=== PATIENT | male | born 1980 | race Caucasian/White ===

== ENCOUNTER 2017-11-18 20:32 | Emergency (ER) | payer SELFPAY ==
[~2017-11-18] VITALS: Ht 167.6 cm; Wt 67.8 kg
[2017-11-18 20:40] VITALS: TEMP 37.1; Ht 167.6 cm; Wt 67.8 kg
[2017-11-18] MEDS ORDERED: SODIUM CHLORIDE 0.9% 500ML 500 ML IV STA (20:45)
[2017-11-18] MEDS ORDERED: GI COCKTAIL PO STA (20:45)
[2017-11-18] MEDS ORDERED: KETOROLAC TROMETHAMINE 30 MG/ML VIAL IV STA (20:45)
[2017-11-18 20:53] VITALS: O2SAT 97
[2017-11-18] MEDS ORDERED: ALUMINUM/MAGNESIUM SUSP 30 ML UDC ONE (20:57)
[2017-11-18] MEDS ORDERED: LIDOCAINE HCL 2% VISC SOLN 20 ML UDC ONE (20:57)
--- NOTE | 2017-11-18 21:05 | DIAGNOSTIC IMAGING REPORT ---
CHEST ONE VIEW PORTABLE CLINICAL HISTORY: 37 years-old Male presenting with Chest Pain. TECHNIQUE: Portable upright AP view of the chest was obtained. COMPARISON: None. FINDINGS: Cardiomediastinal silhouette normal. Lungs and pleural spaces clear. Osseous structures normal. Upper abdomen normal. IMPRESSION: 1. No acute cardiopulmonary disease. Electronically signed by: Emil Gonzalez M.D. 11/18/2017 9:03 PM Dictated Date/Time: 11/18/2017 9:03 PM
[2017-11-18] MEDS ORDERED: ASPI325T39 PO (21:17)
[2017-11-18 21:31] LABS: BASO % 0.4 %; BASO ABS # 0.03 K/uL (0-0.2); EOS % 0.6 %; EOS ABS # 0.04 K/uL (0-0.5); HEMATOCRIT 41.3 % (42-52); HEMOGLOBIN 15.2 g/dL (14.0-18.0); IG# 0.02 K/uL (0.00-0.02); LYMPH % 22.6 %; LYMPH ABS # 1.51 K/uL (1.2-3.4); MEAN CELL VOLUME 94.5 fL (80-100); MEAN CORPUSCULAR HEMOGLOBIN 34.8 pg (25-34); MEAN CORPUSCULAR HGB CONC 36.8 g/dl (32-36); MEAN PLATELET VOLUME 9.5 fL (7.4-10.4); MONO % 9.6 %; MONO ABS # 0.64 K/uL (0.11-0.59); NEUT % 66.5 %; NEUT ABS # 4.43 K/uL (1.4-6.5); PLATELET COUNT 274 K/uL (130-400); RED CELL DISTRIBUTION WIDTH CV 12.4 % (11.5-14.5); RED CELL DISTRIBUTION WIDTH SD 42.5 fL (36.4-46.3); WHITE BLOOD COUNT 6.67 K/uL (4.8-10.8)
[2017-11-18 21:47] LABS: BLOOD UREA NITROGEN 16 mg/dl (7-18); CALCIUM 8.5 mg/dl (8.5-10.1); CARBON DIOXIDE 23 mmol/L (21-32); CREATININE 0.71 mg/dl (0.60-1.40); GLUCOSE 84 mg/dl (70-99); POTASSIUM 3.6 mmol/L (3.5-5.1); SODIUM 136 mmol/L (136-145)
[2017-11-18 22:03] LABS: CKMB 6.8 ng/ml (0.5-3.6)
[2017-11-18] MEDS ORDERED: SODIUM CHLORIDE 0.9% 1000ML 1,000 ML IV STA (22:04)
--- NOTE | 2017-11-18 22:15 | EMERGENCY ROOM VISIT NOTE ---
History Report prepared by Angel: Katerin Mckinney Under the Supervision of: Dr. Rashad Alaniz D.O. First contact with patient: 20:35 Chief Complaint: CHEST PAIN Stated Complaint: CHEST PAIN History of Present Illness The patient is a 37 year old male who presents to the Emergency Room with complaints of persistent chest pain starting 1 hour ago. 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 He initially went to the [facility] complaining of the chest pain after searching the internet for the nearest facility. He was brought to the ED by EMS. The pain is in the left side of his chest and radiates down his left arm. He notes that the pain is worse on palpitation. He describes it as squeezing. He has had this pain multiple times in the past and has been told that he has a lot of stomach acid. The pain does not worsen with twisting or turning. He has had a cough which worsens the pain. He is not coughing up blood, but he noticed some blood in his saliva today. He denies any abdominal pain or leg pain. He denies any thoughts of harming himself or anyone else. He does currently smoke. He admits to drinking alcohol daily. He had around 6 beers today. Patient denies diabetes, hypertension, hyperlipidemia, CAD, history of sudden at a young age. Patient denies swelling of calves, recent trips, history of immobilization or recent surgery, prior history of DVT, hemoptysis, history of malignancy. Source of History: patient Onset: 1 hour ago Position: chest (left) Quality: other (squeezing) Timing: other (persistent) Modifying Factors (Worsening): other (cough) Associated Symptoms: + cough, No abdominal pain Note: Pt denies swelling of calves. Review of Systems See HPI for pertinent positives & negatives. A total of 10 systems reviewed and were otherwise negative. Past Medical & Surgical No history of diabetes, hypertension, CAD. Family History No family history of sudden at a young age. Social History Smoking Status: Current Every Day Smoker Alcohol Use: heavy Current/Historical Medications Scheduled Aspirin (Aspirin Ec), 650 MG PO PRN Allergies Coded Allergies: No Known Allergies (Unverified , 11/18/17) Physical Exam Vital Signs Date Time Temp Pulse Resp B/P (MAP) Pulse Ox O2 Delivery O2 Flow Rate FiO2 11/18/17 21:58 75 18 129/70 98 Room Air 11/18/17 20:53 97 Room Air 11/18/17 20:45 97 Room Air 11/18/17 20:43 87 11/18/17 20:40 37.1 79 20 129/78 97 Room Air Physical Exam GENERAL: Sitting up in bed, smells of alcohol, no acute distress, non-toxic EYE EXAM: conjunctiva injected. OROPHARYNX: no exudate, no erythema, lips, buccal mucosa, and tongue normal and mucous membranes are moist NECK: supple, no nuchal rigidity, no adenopathy, non-tender LUNGS: Clear to auscultation. Normal chest wall mechanics HEART: no murmurs, S1 normal and S2 normal CHEST: reproducible anterior chest wall pain just inferior to the left humeral head which when palpitated radiates to left arm and left neck ABDOMEN: abdomen soft, non-tender, normo-active bowel sounds, no masses, no rebound or guarding. BACK: Back is symmetrical on inspection and there is no deformity, no midline tenderness, no CVA tenderness. SKIN: no rashes and no bruising UPPER EXTREMITIES: upper extremities are grossly normal. Radial pulses equal bilaterally. LOWER EXTREMITIES: No pitting edema. Calves equal bilaterally. NEURO EXAM: Normal sensorium, cranial nerves II-XII grossly intact, normal speech, no gross weakness of arms, no gross weakness of legs. Medical Decision & Procedures ER Provider Diagnostic Interpretation: Radiology results as stated below per my review and the radiologist's interpretation: CHEST ONE VIEW PORTABLE CLINICAL HISTORY: 37 years-old Male presenting with Chest Pain. TECHNIQUE: Portable upright AP view of the chest was obtained. COMPARISON: None. FINDINGS: Cardiomediastinal silhouette normal. Lungs and pleural spaces clear. Osseous structures normal. Upper abdomen normal. IMPRESSION: 1. No acute cardiopulmonary disease. Electronically signed by: Emil Gonzalez M.D. 11/18/2017 9:03 PM Dictated Date/Time: 11/18/2017 9:03 PM Laboratory Results 11/18/17 21:15 Red Blood Count 4.37, Mean Corpuscular Volume 94.5, Mean Corpuscular Hemoglobin 34.8, Mean Corpuscular Hemoglobin Concent 36.8, Mean Platelet Volume 9.5, Neutrophils (%) (Auto) 66.5, Lymphocytes (%) (Auto) 22.6, Monocytes (%) (Auto) 9.6, Eosinophils (%) (Auto) 0.6, Basophils (%) (Auto) 0.4, Neutrophils # (Auto) 4.43, Lymphocytes # (Auto) 1.51, Monocytes # (Auto) 0.64, Eosinophils # (Auto) 0.04, Basophils # (Auto) 0.03 11/18/17 21:15 Test 11/18/17 21:15 White Blood Count 6.67 K/uL (4.8-10.8) Red Blood Count 4.37 M/uL (4.7-6.1) Hemoglobin 15.2 g/dL (14.0-18.0) Hematocrit 41.3 % (42-52) Mean Corpuscular Volume 94.5 fL (80-100) Mean Corpuscular Hemoglobin 34.8 pg (25-34) Mean Corpuscular Hemoglobin Concent 36.8 g/dl (32-36) Platelet Count 274 K/uL (130-400) Mean Platelet Volume 9.5 fL (7.4-10.4) Neutrophils (%) (Auto) 66.5 % Lymphocytes (%) (Auto) 22.6 % Monocytes (%) (Auto) 9.6 % Eosinophils (%) (Auto) 0.6 % Basophils (%) (Auto) 0.4 % Neutrophils # (Auto) 4.43 K/uL (1.4-6.5) Lymphocytes # (Auto) 1.51 K/uL (1.2-3.4) Monocytes # (Auto) 0.64 K/uL (0.11-0.59) Eosinophils # (Auto) 0.04 K/uL (0-0.5) Basophils # (Auto) 0.03 K/uL (0-0.2) RDW Standard Deviation 42.5 fL (36.4-46.3) RDW Coefficient of Variation 12.4 % (11.5-14.5) Immature Granulocyte % (Auto) 0.3 % Immature Granulocyte # (Auto) 0.02 K/uL (0.00-0.02) D-Dimer < 190 ug/L FEU (0-500) Anion Gap 9.0 mmol/L (3-11) Est Creatinine Clear Calc Drug Dose 127.2 ml/min Estimated GFR () 137.9 Estimated GFR (Non- 119.0 BUN/Creatinine Ratio 22.4 (10-20) Calcium Level 8.5 mg/dl (8.5-10.1) Total Creatine Kinase 1110 U/L (39-308) Creatine Kinase MB 6.8 ng/ml (0.5-3.6) Creatine Kinase MB Ratio 0.6 (0-3.0) Troponin I < 0.015 ng/ml (0-0.045) Laboratory results per my review. Medications Administered Medications (Trade) Dose Ordered Sig/Judd Route Start Time Stop Time Status Last Admin Dose Admin Sodium Chloride 500 ml @ 999 mls/hr Q31M STAT IV 11/18/17 20:45 11/18/17 21:15 DC 11/18/17 21:03 999 MLS/HR Ketorolac Tromethamine (Toradol Inj) 30 mg NOW STAT IV 11/18/17 20:45 11/18/17 20:46 DC 11/18/17 21:03 30 MG Lidocaine HCl (Viscous Lidocaine 2% Soln) 20 ml STK-MED ONCE .ROUTE 11/18/17 20:57 11/18/17 20:58 DC 11/18/17 21:03 20 ML Al Hydroxide/Mg Hydroxide (Maalox Susp) 30 ml STK-MED ONCE .ROUTE 11/18/17 20:57 11/18/17 20:58 DC 11/18/17 21:03 30 ML Sodium Chloride 1,000 ml @ 999 mls/hr Q1H1M STAT IV 11/18/17 22:04 11/18/17 23:04 DC 11/18/17 22:14 999 MLS/HR ECG Per My Interpretation Indication: chest pain Rate (beats per minute): 74 Rhythm: sinus rhythm Findings: no ectopy, other (normal axis, normal intervals) ED Course ED COURSE: Vital signs were reviewed and showed normal vitals. The patients medical record was reviewed The above diagnostic studies were performed and reviewed. ED treatments and interventions as stated above. 2036: The patient was evaluated in room C10. A complete history and physical examination was performed. 2044: Toradol Inj 30 mg IV, NSS 500 ml @ 999 mls/hr IV. 2056: Maalox Susp 30 ml PO, Lidocaine HCl 20 ml PO. 2203: NSS 1000 ml @ 999 mls/hr IV. 2245: I reevaluated the patient. He is doing fine and has no complaints. His friend is out waiting in his car. 2315: Pt w/o pain resting comfortably. Pt was signed out to Dr. Puri awaiting repeat troponin. If neg he will go home as discussed with the Patient. Medical Decision Differential diagnoses includes but is not limited to acute coronary syndrome, myocardial infarction, pericarditis, pulmonary embolus, aortic dissection, pneumonia, pneumothorax, musculoskeletal, shingles, esophageal. Patient is a 37-year-old male with no significant past medical history presents to the ER for left-sided chest pain. He has a clear smell of alcohol on his breath. He notes that they initially presented to the [facility] as they googled nearest medical facility and presented to the [facility] via GPS. He has no suicidal or homicidal ideations. Pain is located on the left upper chest wall which is reproducible on exam. It does radiate down the left arm and up to the left side neck on palpation. His pain was completely relieved with IV Toradol and a GI cocktail. This can still be reproduced on palpitation although it has completely resolved. EKG unremarkable. Troponin negative. D-dimer negative. Chest x-ray was unremarkable. Heart score places him into a low risk category. Will repeat troponin and if negative discharged to follow-up as an outpatient. Medication Reconcilliation Current Medication List: was personally reviewed by me Blood Pressure Screening Patient's blood pressure: Normal blood pressure Blood pressure disposition: Did not require urgent referral Impression Primary Impression: Chest pain, musculoskeletal Scribe Attestation The scribe's documentation has been prepared under my direction and personally reviewed by me in its entirety. I confirm that the note above accurately reflects all work, treatment, procedures, and medical decision making performed by me. Departure Information Dispostion Home / Self-Care Referrals No Doctor, Assigned (PCP) Forms Call Back Authorization, HOME CARE DOCUMENTATION FORM, IMPORTANT VISIT INFORMATION Patient Instructions Alcohol Abuse - [facility], ED Chest Pain Costochondritis, My [facility] Additional Instructions Please follow up with your primary care doctor with in the next 24 hours. Any worsening of your symptoms, please return to the ED immediately. This includes any fevers greater than 100.4, worsening pain, chest pain, shortness breath, persistent nausea, vomiting, unable to eat or drink, or any other concerning signs or symptoms from your standpoint. Please do not drive for the next 24 hours as you are intoxicated. Please take Motrin or Tylenol as needed for pain. Please try to cut back on the large amount of alcohol consumption.
--- NOTE | 2017-11-19 00:12 | EMERGENCY ROOM VISIT NOTE ---
ED Visit Note First contact with patient: 23:25 Patient signed out to me by Dr. Alaniz pending a repeat troponin level. Patient with stable vital signs. Second troponin negative. On reevaluation at bedside, patient had no complaints at this time, was initially sleeping. Minimal reproducible chest pain on deep palpation of lateral chest wall. Vital signs stable. Discussed follow-up with family doctor, drinking more water, symptoms to watch and return for, he verbalized understanding was agreeable with plan. States he has a friend waiting in the waiting room to drive him home.
[2017-11-19 00:19] VITALS: BP 135/69; PULSE 76; O2SAT 97
== END 2017-11-19 00:22 | disposition home or self-care (01) ==
LOC: EDBD 20:32 → C.EDC 20:34
DX: R07.89 Other chest pain (principal); R05 Cough; F17.200 Nicotine dependence, unspecified, uncomplicated; F10.99 Alcohol use, unspecified with unspecified alcohol-induced disorder